=== PATIENT | male | born 1965 | race Caucasian/White ===

== ENCOUNTER → 2017-03-20 | Outpatient (CLI) | payer OTHER ==
[~2017-03-20] VITALS: Ht 182.9 cm; Wt 115.7 kg
[~2017-03-20] MED LIST: ASPI81TA85 PO; LIDOCAINE 2% INJ 100 MG/5 ML SDV (FOR ANES.) As Ordered ONE; LISI10TA4 PO; NS 1,000 ML IV ONE; PROPOFOL 200 MG/20 ML VIAL As Ordered ONE; PROT1TAB2 PO; SYNT175T2 PO
--- NOTE | 2017-03-20 10:17 | ROOR ---
Patient Name: Liban Acotsa Procedure Date: 03/20/2017 9:51 AM Date of : 1965 Age: 51 Room: [facility] Gender: Male Note Status: Finalized Procedure: Colonoscopy Indications: Screening for colorectal malignant neoplasm Providers: DO Lebron Murphy MD: CLEMENTINE SPRING MD Requesting Provider: Medicines: Propofol per Anesthesia Complications: No immediate complications. Estimated blood loss: None. Procedure: Pre-Anesthesia Assessment: - Prior to the procedure, a History and Physical was performed, and patient medications and allergies were reviewed. The patient is competent. The risks and benefits of the procedure and the sedation options and risks were discussed with the patient. All questions were answered and informed consent was obtained. Patient identification and proposed procedure were verified by the physician, the nurse, the anesthesiologist and the tool and die technician in the endoscopy suite. Mental Status Examination: alert and oriented. Airway Examination: normal oropharyngeal airway and neck mobility. Respiratory Examination: clear to auscultation. CV Examination: normal. Prophylactic Antibiotics: The patient does not require prophylactic antibiotics. Prior Anticoagulants: The patient has taken no previous anticoagulant or antiplatelet agents. ASA Grade Assessment: II - A patient with mild systemic disease. After reviewing the risks and benefits, the patient was deemed in satisfactory condition to undergo the procedure. The anesthesia plan was to use monitored anesthesia care (MAC). Immediately prior to administration of medications, the patient was re-assessed for adequacy to receive sedatives. The heart rate, respiratory rate, oxygen saturations, blood pressure, adequacy of pulmonary ventilation, and response to care were monitored throughout the procedure. The physical status of the patient was re-assessed after the procedure. The Colonoscope was introduced through the anus and advanced to the cecum, identified by appendiceal orifice and ileocecal valve. The colonoscopy was performed without difficulty. The patient tolerated the procedure well. Findings: Four hyperplastic polyps were found in the sigmoid colon. The polyps were less than 5 mm in size. These polyps were removed with a hot snare. Resection and retrieval were complete. Estimated blood loss was minimal. The exam was otherwise without abnormality on direct and retroflexion views. Impression: - Four less than 5 mm polyps in the sigmoid colon, removed with a hot snare. Resected and retrieved. - The examination was otherwise normal on direct and retroflexion views. Recommendation: - Patient has a contact number available for emergencies. The signs and symptoms of potential delayed complications were discussed with the patient. Return to normal activities tomorrow. Written discharge instructions were provided to the patient. - Repeat colonoscopy in 5-10 years for surveillance based on pathology results. - Return to my office PRN. - Telephone my office for pathology results in 1 week. Dajuan Aldrich DO 03/20/2017 10:17:18 AM This report has been signed electronically. Number of Addenda: 0 Note Initiated On: 03/20/2017 9:51 AM Estimated Blood Loss: Estimated blood loss was minimal.
[2017-03-20 10:40] VITALS: BP 113/70
== END | disposition home or self-care (01) ==
LOC: M OPP 09:20
PROVIDERS: ATTEND Surgery
DX: Z12.11 Encounter for screening for malignant neoplasm of colon (principal); D12.5 Benign neoplasm of sigmoid colon; I10 Essential (primary) hypertension; Z85.818 Personal history of malignant neoplasm of other sites of lip, oral cavity, and pharynx; E03.9 Hypothyroidism, unspecified; R12 Heartburn; M24.60 Ankylosis, unspecified joint; R51 Headache; G47.8 Other sleep disorders; G47.30 Sleep apnea, unspecified; R06.83 Snoring; Z92.21 Personal history of antineoplastic chemotherapy; Z92.3 Personal history of irradiation; Z79.82 Long term (current) use of aspirin; Z79.899 Other long term (current) drug therapy; Z87.891 Personal history of nicotine dependence; Z80.51 Family history of malignant neoplasm of kidney

== ENCOUNTER → 2021-06-02 | Outpatient (CLI) | payer OTHER ==
[~2021-06-02] MED LIST changes: -ASPI81TA85 PO; +ASPI81TA86 PO; -LIDOCAINE 2% INJ 100 MG/5 ML SDV (FOR ANES.) As Ordered ONE; +LISI10TA22 PO; -LISI10TA4 PO; -NS 1,000 ML IV ONE; -PROPOFOL 200 MG/20 ML VIAL As Ordered ONE
--- NOTE | 2021-06-02 15:41 | REPVR ---
PROCEDURE INFORMATION: Exam: CT Neck Without Contrast Exam date and time: 06/02/2021 2:39 PM Age: 55 years old Clinical indication: Malignant neoplasm of nasopharynx. TECHNIQUE: Imaging protocol: Computed tomography images of the neck without contrast. Radiation optimization: All CT scans at this facility use at least one of these dose optimization techniques: automated exposure control; mA and/or kV adjustment per patient size (includes targeted exams where dose is matched to clinical indication); or iterative reconstruction. COMPARISON: No relevant prior studies available. FINDINGS: Paranasal sinuses: The patient has had prior sinus surgery. There is moderate sinus disease. Nasopharynx: Unremarkable. Dental: Examination is limited due to artifact caused by patient's dental amalgam. Portions of the oral cavity, tongue, hard palate, and surrounding soft tissues are not adequately evaluated. Also limited due to the lack of IV contrast. Oropharynx: See "Dental" finding. Hypopharynx: Unremarkable. Larynx: Unremarkable. Normal epiglottis. Retropharyngeal space: Unremarkable. Submandibular/Parotid glands: Normal. Glands are normal in size. Thyroid: Normal. No enlarged or calcified nodules. Lymph nodes: Unremarkable. No lymphadenopathy. Trachea: Visualized trachea is unremarkable. Lungs: There is presumed scarring at both lung apices. Bones/joints: See "Dental" finding. Vasculature: There are calcified atherosclerotic changes of the cervical carotid arteries. Soft tissues: Unremarkable. No significant soft tissue swelling. IMPRESSION: 1. Examination is limited due to artifact caused by patient's dental amalgam. Portions of the oral cavity, tongue, hard palate, and surrounding soft tissues are not adequately evaluated. Also limited due to the lack of IV contrast. Within the limitations of this exam, no nasopharyngeal mass is identified. Direct comparison to prior studies is recommended. 2. The patient has had prior sinus surgery. Please correlate with surgical history. 3. There is presumed scarring at both lung apices. Direct comparison to prior exams is recommended. In the absence of prior studies for comparison purposes, followup imaging is recommended. Electronically signed by: Michael Yoder On 06/02/2021 15:40:59 PM
== END ==
LOC: M RAD 14:24
PROVIDERS: ATTEND Otolaryngology
DX: C11.9 Malignant neoplasm of nasopharynx, unspecified (principal)

== ENCOUNTER → 2021-06-07 | Outpatient (CLI) | payer OTHER ==
--- NOTE | 2021-06-07 08:28 | REP ---
INDICATION: HYPERTENSIVE HEART DX COMPARISON: None None TECHNIQUE: Real time bal scale ultrasound examination using curved array transducer followed by color Doppler evaluation of the renal vasculature. FINDINGS: Right kidney measures 10.6 x 5.5 x 5.4 cm and appears normal in reniform shape without hydronephrosis, nephrolithiasis, cystic or renal mass lesion. Left kidney measures 11.6 x 7.9 x 6.2 cm and appears normal in reniform shape with 1.4 cm and 1.9 cm cortical midpole cysts. No hydronephrosis, nephrolithiasis, or renal mass lesion. Color Doppler evaluation was significantly limited due to overlying bowel gas obscuring the main renal arteries.. Peak aortic velocity: Obscured by bowel gas centimeters/second RIGHT KIDNEY Renal arterial velocity: Obscured by bowel gas centimeters/second Renal-aortic ratio: Not applicable Intrarenal resistive indices: 0.63-0.68 Intrarenal acceleration times: 0.030-0.042 LEFT KIDNEY Renal arterial velocity: Obscured by bowel gas centimeters/second Renal-aortic ratio: Not applicable Intrarenal resistive indices: 0.62-0.67 Intrarenal acceleration times: 0.036-0.044 IMPRESSION: 1. Kidneys appear normal. Two left renal cysts noted. No hydronephrosis. 2. Doppler interegation is significantly limited due to overlying bowel gas. Consider nuclear medicine renal function testing, MRA or CTA of the renal arteries if necessary.. <Electronically signed by Ravindra Hodges > 06/07/21 [id number]
== END ==
LOC: M RAD 06:32
PROVIDERS: ATTEND Internal Medicine Cardiovascular Disease
DX: I11.9 Hypertensive heart disease without heart failure (principal)

== ENCOUNTER → 2024-11-09 | Outpatient (CLI) | payer OTHER ==
[~2024-11-09] MED LIST changes: +ISOVUE-370 76% 100ML VIAL ONE
== END ==
LOC: M PLAIMG 14:00
PROVIDERS: ATTEND Otolaryngology
DX: C11.9 Malignant neoplasm of nasopharynx, unspecified (principal); J33.9 Nasal polyp, unspecified

== ENCOUNTER → 2024-12-28 | Outpatient (CLI) | payer OTHER ==
[~2024-12-28] MED LIST changes: +E-Z-GAS II EFFERVESCENT PACKET (SODIUM BICARB./CITRIC ACID/SIMETHICONE) As Ordered ONE; +E-Z-HD 98% w/w 340GM SUSP BTL As Ordered ONE; +E-Z-PAQUE 96% w/w SUSP 176GM BTL As Ordered ONE; -ISOVUE-370 76% 100ML VIAL ONE
== END ==
LOC: M RAD 10:25
PROVIDERS: ATTEND Otolaryngology
DX: R13.10 Dysphagia, unspecified (principal)

== ENCOUNTER → 2025-04-27 | Outpatient (CLI) | payer OTHER ==
[~2025-04-27] MED LIST changes: +BARIUM SULFATE 700 MG TABLET As Ordered ONE; -E-Z-GAS II EFFERVESCENT PACKET (SODIUM BICARB./CITRIC ACID/SIMETHICONE) As Ordered ONE; -E-Z-HD 98% w/w 340GM SUSP BTL As Ordered ONE; +E-Z-PAQUE 96% w/w SUSP 176 GM BTL As Ordered ONE; -E-Z-PAQUE 96% w/w SUSP 176GM BTL As Ordered ONE; +VARIBAR NECTAR 40% w/v 240ML SUSP BTL As Ordered ONE; +VARIBAR PUDDING 40% w/v 230ML TUBE As Ordered ONE
== END ==
LOC: M RAD 12:44
PROVIDERS: ATTEND Otolaryngology
DX: R13.10 Dysphagia, unspecified (principal)

== ENCOUNTER 2025-05-27 10:52 | Emergency (ER) | payer OTHER ==
[~2025-05-27] VITALS: Ht 188 cm; Wt 105.8 kg
[~2025-05-27 10:52] MED LIST changes: -BARIUM SULFATE 700 MG TABLET As Ordered ONE; -E-Z-PAQUE 96% w/w SUSP 176 GM BTL As Ordered ONE; -VARIBAR NECTAR 40% w/v 240ML SUSP BTL As Ordered ONE; -VARIBAR PUDDING 40% w/v 230ML TUBE As Ordered ONE
[2025-05-27 10:58] VITALS: TEMP 97.9
[2025-05-27] MEDS ORDERED: SEMA1.7P (11:05)
[2025-05-27] MEDS ORDERED: SYNT125T (11:05)
[2025-05-27] MEDS ORDERED: ALFU10TA23 (11:05)
[2025-05-27] MEDS ORDERED: ESOM40CA35 (11:05)
[2025-05-27] MEDS ORDERED: FINA5TAB2 (11:05)
[2025-05-27] MEDS ORDERED: OXYB15TA14 (11:05)
[2025-05-27] MEDS ORDERED: CELE1CAP99 (11:05)
[2025-05-27] MEDS: LIDOCAINE 2% MDV 20 ML VIAL SC ONE (11:55)
[2025-05-27] MEDS ORDERED: BACI500O8 TOP (13:11)
[2025-05-27] MEDS ORDERED: CEPH500C PO (13:11)
[2025-05-27 13:21] VITALS: BP 166/92; O2SAT 99
== END 2025-05-27 13:23 | disposition home or self-care (01) ==
LOC: M ED 10:52
DX: S61.217A Laceration without foreign body of left little finger without damage to nail, initial encounter (principal); W31.2XXA Contact with powered woodworking and forming machines, initial encounter; I10 Essential (primary) hypertension; G47.30 Sleep apnea, unspecified; K21.9 Gastro-esophageal reflux disease without esophagitis; N40.0 Benign prostatic hyperplasia without lower urinary tract symptoms; Z79.82 Long term (current) use of aspirin; Z79.2 Long term (current) use of antibiotics; Z79.899 Other long term (current) drug therapy; Y92.009 Unspecified place in unspecified non-institutional (private) residence as the place of occurrence of the external cause; Y93.89 Activity, other specified; Y99.9 Unspecified external cause status

== ENCOUNTER 2025-07-07 09:54 | Outpatient (RCR) | payer OTHER ==
[~2025-07-07 09:54] MED LIST changes: +ALFU10TA23; +BACI500O8 TOP; +CELE1CAP99; +CEPH500C PO; +ESOM40CA35; +FINA5TAB2; +OXYB15TA14; +SEMA1.7P; +SYNT125T
== END 2025-07-25 ==
LOC: M ST 09:54
PROVIDERS: ATTEND Otolaryngology
DX: R13.10 Dysphagia, unspecified (principal)